=== PATIENT | female | born 1960 | race Caucasian/White ===

== ENCOUNTER 2019-09-07 15:48 | Emergency (ER) | payer MEDICAID ==
[~2019-09-07] VITALS: Ht 157.5 cm; Wt 85.7 kg
[~2019-09-07 15:48] MED LIST: ACETAMINOPHEN-1 EAC1 PO; CLONIDINE0.1 PO; DOXYCYCLINE 10100 MG PO; MUCINEX TA600 MG/TA2; PREDNISONE 20 M20 M1 PO; PRILOSEC 10MG C10 MG PO; ULTRAM 50MG TAB50 MG PO; VENTOLIN HFA 1818 GM INH; ZPAK PO
[2019-09-07] MEDS ORDERED: FLONASE 0.05%50 MCG NARES (16:07)
[2019-09-07 16:15] VITALS: BP 155/88
== END 2019-09-07 16:15 | disposition home or self-care (01) ==
LOC: M.ERS 15:48
DX: H69.83 Other specified disorders of Eustachian tube, bilateral (principal); K21.9 Gastro-esophageal reflux disease without esophagitis; Z90.49 Acquired absence of other specified parts of digestive tract; Z85.3 Personal history of malignant neoplasm of breast

== ENCOUNTER 2021-05-08 21:03 | Emergency (ER) | payer MEDICAID ==
[~2021-05-08] VITALS: Ht 157.5 cm; Wt 86.2 kg
[~2021-05-08 21:03] MED LIST changes: +FLONASE 0.05%50 MCG NARES
[2021-05-08] MEDS ORDERED: CYMBALTA (21:09)
[2021-05-08] MEDS ORDERED: [UNRECOGNIZED DRUG - REMARK] (21:09)
[2021-05-08 21:10] VITALS: BP 151/102
[2021-05-08 21:28] LABS: ABSOLUTE BASOPHILS 0.1 thou/uL (0.0-0.2); ABSOLUTE EOSINOPHILS 0.1 thou/uL (0.0-0.7); ABSOLUTE MONOCYTES 0.6 thou/uL (0.0-1.2); ABSOLUTE NEUTROPHILS 8.3 thou/uL (1.6-8.1); EOSINOPHILS 0.6 %; HEMOGLOBIN 14.1 gm/dL (12.0-15.0); MCH 28.1 pg (26.0-34.0); MCHC 32.7 g/dL (28.0-37.0); MCV 85.9 fL (80.0-100.0); MONOCYTES 5.3 %; MPV 10.2 fl. (7.2-11.1); NUCLEATED RBCS 0 /100WBC; PLATELET COUNT* 270 thou/uL (150-400); POLYS 75.1 %; RBC 5.01 mil/uL (4.20-5.00); RDW-CV 13.8 % (10.5-14.5)
[2021-05-08 21:38] LABS: CALCIUM 9.9 mg/dL (8.5-10.1); CREATININE 1.2 mg/dL (0.6-1.3); POTASSIUM 4.4 mmol/L (3.5-5.1)
[2021-05-08 21:42] LABS: ALBUMIN 4.1 g/dL (3.4-5.0); TOTAL BILIRUBIN 0.3 mg/dL (<0.1-1.0); TOTAL PROTEIN 7.9 g/dL (6.4-8.2)
[2021-05-09 00:40] LABS: URINE BILIRUBIN NEGATIVE (Negative); URINE BLOOD NEGATIVE (Negative); URINE CLARITY CLEAR; URINE COLOR YELLOW; URINE GLUCOSE-RANDOM NEGATIVE (Negative); URINE KETONES 1+ (Negative); URINE LEUKOCYTES-REFLEX NEGATIVE (Negative); URINE NITRITE-REFLEX NEGATIVE (Negative); URINE PROTEIN NEGATIVE (Negative); URINE UROBILINOGEN 0.2 E.U./dl (0.2-1.0)
[2021-05-09] MEDS ORDERED: FLAGYL500 M1 PO ×2 (04:37→04:38)
[2021-05-09] MEDS ORDERED: ZOFRAN ODT4 MG PO ×2 (04:37→04:38)
[2021-05-09] MEDS ORDERED: HYDROCODON-ACE1 EAC8 PO ×2 (04:37→04:38)
[2021-05-09 05:15] VITALS: BP 135/78
== END 2021-05-09 05:15 | disposition home or self-care (01) ==
LOC: M.ERS 21:03 → M.TBA-ER 05-09 01:32 → M.ERS 05-09 01:32
PROVIDERS: Emergency Medicine
DX: K52.9 Noninfective gastroenteritis and colitis, unspecified (principal); Z20.822 Contact with and (suspected) exposure to COVID-19; R11.2 Nausea with vomiting, unspecified; K21.9 Gastro-esophageal reflux disease without esophagitis; Z85.3 Personal history of malignant neoplasm of breast; Y92.89 Other specified places as the place of occurrence of the external cause